=== PATIENT | female | born 1950 | race Caucasian/White ===

== ENCOUNTER 2017-07-14 08:45 | Day surgery (SDC) | payer MEDICARE, OTHER ==
[~2017-07-14] VITALS: Ht 167.6 cm; Wt 74.8 kg
[~2017-07-14 08:45] MED LIST: AMLO5 PO; CRANBERRY; DICL75ER PO; ERGO50000 PO; ESOM20 PO; LOVA40 PO; MULVITMINF PO; OMEPRAZOLE MAGN20 MG PO; VITAMIN B
== END 2017-07-14 22:56 | disposition home or self-care (01) ==
LOC: ORSCMMR 08:45 → ORD 10:00 → ORSCMMR 10:00
PROVIDERS: Internal Medicine Gastroenterology
PROC: 0DBP8ZX Excision of Rectum, Via Natural or Artificial Opening Endoscopic, Diagnostic (ICD-10-PCS; principal; 2017-07-14 10:00)
PROC: 0DBN8ZX Excision of Sigmoid Colon, Via Natural or Artificial Opening Endoscopic, Diagnostic (ICD-10-PCS; principal; 2017-07-14 10:00)
DX: K62.5 Hemorrhage of anus and rectum (principal); D12.8 Benign neoplasm of rectum; K63.5 Polyp of colon; K62.1 Rectal polyp; K51.40 Inflammatory polyps of colon without complications; K64.8 Other hemorrhoids; K57.30 Diverticulosis of large intestine without perforation or abscess without bleeding; Z80.0 Family history of malignant neoplasm of digestive organs; I10 Essential (primary) hypertension; E78.00 Pure hypercholesterolemia, unspecified; Z79.899 Other long term (current) drug therapy
CPT/HCPCS: 88305; J7120

== ENCOUNTER 2018-04-02 05:35 | Emergency (ER) | payer MEDICARE, OTHER ==
[~2018-04-02] VITALS: Ht 170.2 cm; Wt 73.0 kg
[2018-04-02 06:19] LABS: Source, Urine Clean Catch
[2018-04-02 06:24] LABS: Bilirubin, Urine Neg (Neg); Blood, Urine 1+ (Neg); Glucose Qualitative, Urine Neg (Neg); Ketones, Urine Neg (Neg); Leukocyte Esterase, Urine 1+ (Neg); Nitrite, Urine Neg (Neg); Protein, Urine 1+ (Neg); Urobilinogen, Urine NORM (Normal)
[2018-04-02 06:33] LABS: Appearance, Urine Hazy (Clear); Bacteria Not Seen /hpf; Color, Urine Yellow (P-Yellow); Red Blood Cells, Urine 0-2 /hpf (0-2); Squamous Epithelial Cells Few /hpf (Few); White Blood Cells, Urine 0-2 /hpf (0-5)
[2018-04-02 06:38] LABS: BASOPHILS ABSOLUTE AUTO 0.05 K/mm3 (0.00-0.23); BASOPHILS PERCENT AUTO 0 % (0-2); EOSINOPHILS ABSOLUTE AUTO 0.11 K/mm3 (0.00-0.68); EOSINOPHILS PERCENT AUTO 1 % (0-6); Hematocrit 42.9 % (33.0-51.0); Hemoglobin 14.2 g/dL (11.5-16.0); IMMATURE GRAN ABSOLUTE AUTO 0.06 K/mm3 (0.00-0.10); IMMATURE GRAN PERCENT AUTO 0 % (0-1); LYMPHOCYTES ABSOLUTE AUTO 2.65 K/mm3 (0.84-5.20); LYMPHOCYTES PERCENT AUTO 18 % (21-46); MONOCYTES ABSOLUTE AUTO 1.06 K/mm3 (0.16-1.47); MONOCYTES PERCENT AUTO 7 % (4-13); Mean Corpuscular HGB 30.6 pg (26.0-34.0); Mean Corpuscular HGB Conc 33.1 g/dL (31.5-36.5); Mean Corpuscular Volume 93 fL (80-100); Mean Platelet Volume 11.1 fL (9.1-12.4); NEUTROPHILS ABSOLUTE AUTO 10.92 K/mm3 (1.96-9.15); NEUTROPHILS PERCENT AUTO 74 % (41-73); Platelet Count 235 K/mm3 (150-400); RDW Coefficient Variation 13.2 % (11.7-14.2); RDW Standard Deviation 44.3 fL (35.1-46.3); Red Blood Cell Count 4.64 M/mm3 (3.80-5.20); White Blood Cell Count 14.85 K/mm3 (4.00-11.30)
[2018-04-02 06:55] LABS: Alanine Aminotransfer (ALT/SGP 32 U/L (12-78); Albumin/Globulin Ratio 1.2 (0.8-1.8); Alk Phos 86 U/L (50-136); Anion Gap 9 mmol/L (6-16); Aspartate Aminotrans (AST/SGOT 19 U/L (12-37); Bilirubin, Total 1.4 mg/dL (0.1-1.0); Blood Urea Nitrogen 14 mg/dL (8-24); Bun/Creatinine Ratio 21.2 (12.0-20.0); CO2, Blood 26 mmol/L (21-32); Calcium, Blood 9.7 mg/dL (8.5-10.1); Chloride, Blood 107 mmol/L (98-108); Creatinine, Blood 0.66 mg/dL (0.40-1.00); Globulin, Blood 3.4 g/dL (2.2-4.0); Glomerular Filtration Rate >60 (60-); Glucose, Blood 109 mg/dL (70-99); Potassium, Blood 3.7 mmol/L (3.5-5.5); Sodium, Blood 142 mmol/L (136-145); Total Protein, Blood 7.4 g/dL (6.4-8.2)
[2018-04-02] MEDS ORDERED: Flagyl250 MG PO (08:24)
[2018-04-02] MEDS ORDERED: Norco 5-325 Ta1 EACH PO (08:24)
[2018-04-02] MEDS ORDERED: Zofran4 MG PO (08:24)
[2018-04-02] MEDS ORDERED: Cipro500 MG PO (08:24)
[2018-05-12] MEDS ORDERED: Augmentin 875-1 EACH PO (16:38)
[2018-05-12] MEDS ORDERED: Norco 5-325 Ta1 EACH PO (16:43)
[2018-05-12] MEDS ORDERED: Diflucan150 MG PO (16:43)
== END 2018-04-02 08:46 | disposition home or self-care (01) ==
LOC: ER 05:35
PROVIDERS: Emergency Medicine
DX: K57.30 Diverticulosis of large intestine without perforation or abscess without bleeding (principal); Z88.2 Allergy status to sulfonamides; Z79.899 Other long term (current) drug therapy
CPT/HCPCS: 36415; 74176; 80053; 81001; 83690; 85025; 87086; 96361; 96374; 96375; 96376; 99284-25; J2405; J3010; J7030

== ENCOUNTER 2018-06-20 10:12 | Inpatient (IN) | payer MEDICARE, OTHER ==
[~2018-06-20] VITALS: Ht 162.6 cm; Wt 73.5 kg
[~2018-06-20 10:12] MED LIST changes: +Augmentin 875-1 EACH PO; +Cipro500 MG PO; +Diflucan150 MG PO; +Flagyl250 MG PO; +Norco 5-325 Ta1 EACH PO; +Zofran4 MG PO
[2018-06-20 10:42] LABS: BASOPHILS ABSOLUTE AUTO 0.07 K/mm3 (0.00-0.23); BASOPHILS PERCENT AUTO 1 % (0-2); EOSINOPHILS ABSOLUTE AUTO 0.19 K/mm3 (0.00-0.68); EOSINOPHILS PERCENT AUTO 1 % (0-6); Hematocrit 44.2 % (33.0-51.0); Hemoglobin 14.4 g/dL (11.5-16.0); IMMATURE GRAN ABSOLUTE AUTO 0.05 K/mm3 (0.00-0.10); IMMATURE GRAN PERCENT AUTO 0 % (0-1); LYMPHOCYTES PERCENT AUTO 21 % (21-46); MONOCYTES ABSOLUTE AUTO 0.95 K/mm3 (0.16-1.47); MONOCYTES PERCENT AUTO 6 % (4-13); Mean Corpuscular HGB 30.4 pg (26.0-34.0); Mean Corpuscular HGB Conc 32.6 g/dL (31.5-36.5); Mean Corpuscular Volume 93 fL (80-100); Mean Platelet Volume 10.8 fL (9.1-12.4); NEUTROPHILS ABSOLUTE AUTO 10.81 K/mm3 (1.96-9.15); NEUTROPHILS PERCENT AUTO 71 % (41-73); Platelet Count 269 K/mm3 (150-400); RDW Coefficient Variation 12.9 % (11.7-14.2); RDW Standard Deviation 44.2 fL (35.1-46.3); Red Blood Cell Count 4.73 M/mm3 (3.80-5.20); White Blood Cell Count 15.27 K/mm3 (4.00-11.30)
[2018-06-20 11:02] LABS: Alanine Aminotransfer (ALT/SGP 49 U/L (12-78); Albumin, Blood 4.8 g/dL (3.4-5.0); Albumin/Globulin Ratio 1.5 (0.8-1.8); Alk Phos 94 U/L (50-136); Anion Gap 6 mmol/L (6-16); Aspartate Aminotrans (AST/SGOT 31 U/L (12-37); Bilirubin, Total 1.3 mg/dL (0.1-1.0); Blood Urea Nitrogen 19 mg/dL (8-24); Bun/Creatinine Ratio 25.5 (12.0-20.0); CO2, Blood 27 mmol/L (21-32); Calcium, Blood 10.9 mg/dL (8.5-10.1); Chloride, Blood 107 mmol/L (98-108); Creatinine, Blood 0.75 mg/dL (0.40-1.00); Globulin, Blood 3.1 g/dL (2.2-4.0); Glomerular Filtration Rate >60 (60-); Glucose, Blood 92 mg/dL (70-99); Potassium, Blood 3.8 mmol/L (3.5-5.5); Sodium, Blood 140 mmol/L (136-145); Total Protein, Blood 7.9 g/dL (6.4-8.2)
[2018-06-20] MEDS ORDERED: Hydrocodone-Ap1 EA23 PO (12:16)
[2018-06-20] MEDS ORDERED: Zantac150 MG PO (13:10)
[2018-06-20] MEDS ORDERED: CRANBERRY500 M1 PO (13:12)
[2018-06-20] MEDS ORDERED: CENTRUM SILVER1 EAC2 PO (13:12)
[2018-06-20] MEDS ORDERED: CYAN500 PO (13:13)
[2018-06-20] MEDS ORDERED: Oyster Shell C500 MG PO (13:14)
[2018-06-20] MEDS ORDERED: Elemental Calc600 MG PO (13:17)
[2018-06-20] MEDS ORDERED: PROBIOTIC FORM1 EAC1 PO (15:02)
--- NOTE | 2018-06-20 15:44 | NUR ---
PT ARRIVED TO UNIT FROM ED A&OX4. PLEASANT AND COOPERATIVE. REPORTS 9/10 LLQ PAIN AT THIS TIME. DENIES N/V. MEDICATED PER ORDERS W/1 TAB NORCO FOR PAIN. AMBULATED INDEPENDENTLY TO RESTROOM AND VOIDED 150 ML CLEAR PALE YELLOW URINE. NOW RESTING IN BED, WATCHING TV. CALL LIGHT IN REACH. ABX AND IV FLUIDS INFUSING PER ORDERS. LOVENOX ADMINSTERED PER ORDERS.
--- NOTE | 2018-06-20 17:21 | NUR ---
SUMMARY NO ACUTE CHANGES SINCE ARRIVING TO FLOOR. HAS BEEN UP TO RESTROM TWICE AND VOIDED SINCE ARRIVING. MEDICATED PER ORDERS FOR PAIN WHICH BROUGHT LEVEL FROM 9 TO 5. DENIES NAUSEA. IV ABX INFUSED W/O DIFFICULTY. IV FLUIDS INFUSING AT THIS TIME. CALL LIGHT IN REACH.
--- NOTE | 2018-06-20 18:03 | NUR ---
02 SATS 02 SATS DROPPED TO MID- HIGH- EIGHTIES PT RESTED W/EYES CLOSED. PLACED ON 2L NC. 02 SATS NOW 96% RESTS.
[2018-06-21 05:03] LABS: BASOPHILS ABSOLUTE AUTO 0.06 K/mm3 (0.00-0.23); BASOPHILS PERCENT AUTO 0 % (0-2); EOSINOPHILS PERCENT AUTO 1 % (0-6); Hematocrit 38.7 % (33.0-51.0); Hemoglobin 12.2 g/dL (11.5-16.0); IMMATURE GRAN ABSOLUTE AUTO 0.07 K/mm3 (0.00-0.10); IMMATURE GRAN PERCENT AUTO 0 % (0-1); LYMPHOCYTES ABSOLUTE AUTO 2.32 K/mm3 (0.84-5.20); LYMPHOCYTES PERCENT AUTO 15 % (21-46); MONOCYTES ABSOLUTE AUTO 1.19 K/mm3 (0.16-1.47); MONOCYTES PERCENT AUTO 8 % (4-13); Mean Corpuscular HGB 29.8 pg (26.0-34.0); Mean Corpuscular HGB Conc 31.5 g/dL (31.5-36.5); Mean Corpuscular Volume 94 fL (80-100); Mean Platelet Volume 10.9 fL (9.1-12.4); NEUTROPHILS ABSOLUTE AUTO 12.19 K/mm3 (1.96-9.15); NEUTROPHILS PERCENT AUTO 77 % (41-73); Platelet Count 215 K/mm3 (150-400); RDW Coefficient Variation 13.5 % (11.7-14.2); RDW Standard Deviation 46.5 fL (35.1-46.3); White Blood Cell Count 15.93 K/mm3 (4.00-11.30)
[2018-06-21 06:03] LABS: Anion Gap 5 mmol/L (6-16); Blood Urea Nitrogen 11 mg/dL (8-24); CO2, Blood 27 mmol/L (21-32); Calcium, Blood 8.9 mg/dL (8.5-10.1); Chloride, Blood 108 mmol/L (98-108); Creatinine, Blood 0.79 mg/dL (0.40-1.00); Glomerular Filtration Rate >60 (60-); Glucose, Blood 106 mg/dL (70-99); Potassium, Blood 3.8 mmol/L (3.5-5.5); Sodium, Blood 140 mmol/L (136-145)
--- NOTE | 2018-06-21 06:44 | NUR ---
LYING IN RIGHT SEMI FOWLERS WITH EYES OPEN. MEDICATED X2 FOR BREAKTHROUGH PAIN. REPOSITIONS SELF FOR COMFORT. DENIES FURTHER NEEDS AT THIS TIME. SAFETY MEASURES IN PLACE. WILL GIVE HAND OFF TO ONCOMING SHIFT USING SBAR,
--- NOTE | 2018-06-21 14:29 | NUR ---
biox patient sleeping after pain meds. biox 88%, oxygen placed at 1 liter and biox 93-95%
--- NOTE | 2018-06-21 17:57 | NUR ---
SUMMARY BIOX 96-98%, OXYGEN REMOVED AT THIS TIME, PATIENT REMAINS ON CONT BIOX. PATIENT TOLERATING CLEAR LIQUIDS AND DENIES NAUSEA OR ABD PAIN
--- NOTE | 2018-06-22 06:10 | NUR ---
SHIFT SUMMARY PT RESTED WELL THIS AM. AAOX4. PAIN CONTROLLED WITH 10MG ROXICODONE Q4H. NO NAUSEA/EMESIS. IVF + ABX PER ORDERS. NO ACUTE CHANGES THIS SHIFT. CALL LIGHT IN RAECH + PT USES FOR ASSISTANCE.
[2018-06-22 06:11] LABS: BASOPHILS ABSOLUTE AUTO 0.04 K/mm3 (0.00-0.23); BASOPHILS PERCENT AUTO 0 % (0-2); EOSINOPHILS ABSOLUTE AUTO 0.13 K/mm3 (0.00-0.68); EOSINOPHILS PERCENT AUTO 1 % (0-6); Hematocrit 38.8 % (33.0-51.0); Hemoglobin 12.2 g/dL (11.5-16.0); IMMATURE GRAN ABSOLUTE AUTO 0.06 K/mm3 (0.00-0.10); IMMATURE GRAN PERCENT AUTO 0 % (0-1); LYMPHOCYTES ABSOLUTE AUTO 2.18 K/mm3 (0.84-5.20); LYMPHOCYTES PERCENT AUTO 15 % (21-46); MONOCYTES ABSOLUTE AUTO 1.06 K/mm3 (0.16-1.47); MONOCYTES PERCENT AUTO 7 % (4-13); Mean Corpuscular HGB 29.7 pg (26.0-34.0); Mean Corpuscular HGB Conc 31.4 g/dL (31.5-36.5); Mean Corpuscular Volume 94 fL (80-100); NEUTROPHILS ABSOLUTE AUTO 10.94 K/mm3 (1.96-9.15); NEUTROPHILS PERCENT AUTO 76 % (41-73); Platelet Count 192 K/mm3 (150-400); RDW Coefficient Variation 13.1 % (11.7-14.2); RDW Standard Deviation 45.2 fL (35.1-46.3); Red Blood Cell Count 4.11 M/mm3 (3.80-5.20); White Blood Cell Count 14.41 K/mm3 (4.00-11.30)
[2018-06-22 06:41] LABS: Alanine Aminotransfer (ALT/SGP 26 U/L (12-78); Albumin, Blood 3.3 g/dL (3.4-5.0); Albumin/Globulin Ratio 1.1 (0.8-1.8); Alk Phos 79 U/L (50-136); Anion Gap 8 mmol/L (6-16); Aspartate Aminotrans (AST/SGOT 16 U/L (12-37); Bilirubin, Total 1.7 mg/dL (0.1-1.0); Blood Urea Nitrogen 5 mg/dL (8-24); Bun/Creatinine Ratio 8.8 (12.0-20.0); CO2, Blood 23 mmol/L (21-32); Calcium, Blood 8.6 mg/dL (8.5-10.1); Chloride, Blood 111 mmol/L (98-108); Creatinine, Blood 0.57 mg/dL (0.40-1.00); Globulin, Blood 2.9 g/dL (2.2-4.0); Glomerular Filtration Rate >60 (60-); Glucose, Blood 83 mg/dL (70-99); Potassium, Blood 3.8 mmol/L (3.5-5.5); Sodium, Blood 142 mmol/L (136-145); Total Protein, Blood 6.2 g/dL (6.4-8.2)
--- NOTE | 2018-06-22 08:54 | NUR ---
ISTRATE HERE TO SEE PT.
[2018-06-22 13:38] LABS: Hematocrit 38.8 % (33.0-51.0); Hemoglobin 12.5 g/dL (11.5-16.0); Mean Corpuscular HGB 30.8 pg (26.0-34.0); Mean Corpuscular HGB Conc 32.2 g/dL (31.5-36.5); Mean Corpuscular Volume 96 fL (80-100); Mean Platelet Volume 11.5 fL (9.1-12.4); Platelet Count 209 K/mm3 (150-400); RDW Coefficient Variation 13.2 % (11.7-14.2); RDW Standard Deviation 46.4 fL (35.1-46.3); Red Blood Cell Count 4.06 M/mm3 (3.80-5.20); White Blood Cell Count 12.13 K/mm3 (4.00-11.30)
--- NOTE | 2018-06-22 13:46 | NUR ---
DR HARRISON HERE, REPORTS WILL ADVANCE TO FULL LIQUID. PT REPORTS HAVING BM.
--- NOTE | 2018-06-22 16:28 | NUR ---
SHIFT SUMMARY PT TOLERATING C.L. BEING ADVANCED TO FULL LIQUID. PT VOIDING. PT BEEN ASSISTED WITH ADL'S PRN AND MED FOR PAIN PRN. PT WBC APPEARS TO BE TRENDING DOWN. DR TOLEDO AND DR HARRISON BEEN TO SEE PT TODAY. PT REPORTED HAVING BM TODAY. PT UP IND.
[2018-06-23 05:04] LABS: BASOPHILS ABSOLUTE AUTO 0.05 K/mm3 (0.00-0.23); BASOPHILS PERCENT AUTO 1 % (0-2); EOSINOPHILS ABSOLUTE AUTO 0.26 K/mm3 (0.00-0.68); EOSINOPHILS PERCENT AUTO 3 % (0-6); Hematocrit 38.7 % (33.0-51.0); Hemoglobin 12.6 g/dL (11.5-16.0); IMMATURE GRAN ABSOLUTE AUTO 0.04 K/mm3 (0.00-0.10); IMMATURE GRAN PERCENT AUTO 0 % (0-1); LYMPHOCYTES PERCENT AUTO 19 % (21-46); MONOCYTES ABSOLUTE AUTO 0.83 K/mm3 (0.16-1.47); MONOCYTES PERCENT AUTO 8 % (4-13); Mean Corpuscular HGB 30.7 pg (26.0-34.0); Mean Corpuscular HGB Conc 32.6 g/dL (31.5-36.5); Mean Corpuscular Volume 94 fL (80-100); Mean Platelet Volume 10.9 fL (9.1-12.4); NEUTROPHILS ABSOLUTE AUTO 6.88 K/mm3 (1.96-9.15); NEUTROPHILS PERCENT AUTO 69 % (41-73); Platelet Count 213 K/mm3 (150-400); RDW Coefficient Variation 13.1 % (11.7-14.2); RDW Standard Deviation 45.2 fL (35.1-46.3); Red Blood Cell Count 4.11 M/mm3 (3.80-5.20); White Blood Cell Count 9.96 K/mm3 (4.00-11.30)
[2018-06-23 05:19] LABS: Alanine Aminotransfer (ALT/SGP 26 U/L (12-78); Albumin, Blood 3.3 g/dL (3.4-5.0); Alk Phos 88 U/L (50-136); Anion Gap 5 mmol/L (6-16); Aspartate Aminotrans (AST/SGOT 19 U/L (12-37); Bilirubin, Total 1.2 mg/dL (0.1-1.0); Blood Urea Nitrogen 3 mg/dL (8-24); Bun/Creatinine Ratio 5.4 (12.0-20.0); CO2, Blood 28 mmol/L (21-32); Calcium, Blood 9.2 mg/dL (8.5-10.1); Chloride, Blood 111 mmol/L (98-108); Creatinine, Blood 0.56 mg/dL (0.40-1.00); Globulin, Blood 3.3 g/dL (2.2-4.0); Glomerular Filtration Rate >60 (60-); Glucose, Blood 97 mg/dL (70-99); Potassium, Blood 3.4 mmol/L (3.5-5.5); Sodium, Blood 144 mmol/L (136-145); Total Protein, Blood 6.6 g/dL (6.4-8.2)
--- NOTE | 2018-06-23 06:38 | NUR ---
LYING IN SEMI FOWLERS WITH EYES CLOSED. MEDICATED X1 FOR BREAKTHROUGH PAIN. REPOSITIONS SELF FOR COMFORT. DENIES FURTHER NEEDS AT THIS TIME. SAFETY MEASURES IN PLACE. WILL GIVE HAND OFF TO ONCOMING SHIFT USING SBAR,
[2018-06-23] MEDS ORDERED: HYDR1TAB94 PO (11:14)
[2018-06-23] MEDS ORDERED: BISA10S PR (11:15)
[2018-06-23] MEDS ORDERED: ACET325 PO (11:15)
[2018-06-23] MEDS ORDERED: ONDA4ODT PO (11:16)
[2018-06-23] MEDS ORDERED: Augmentin 875-1 EACH PO (11:18)
[2018-06-23] MEDS ORDERED: SACC250C PO (11:19)
[2018-06-23] MEDS ORDERED: FLUC100 PO (11:20)
== END 2018-06-23 11:30 | disposition home or self-care (01) | DRG 392 ==
LOC: ER 10:12 → SURS 13:14
PROVIDERS: Emergency Medicine; ADMIT Family Medicine
DX: K57.20 Diverticulitis of large intestine with perforation and abscess without bleeding (principal); I10 Essential (primary) hypertension; E78.5 Hyperlipidemia, unspecified; M19.90 Unspecified osteoarthritis, unspecified site; Z87.891 Personal history of nicotine dependence; G89.29 Other chronic pain
CPT/HCPCS: 36415; 74177; 80048; 80053; 83605; 83690; 85025; 85027; 87040; 94762; 96361-59; 96365-59; 96375-59; 96376-59; 99285-25; A9270-GY; J0694; J1650; J2270; J2405; J2543; J3010; J7030; Q9967

== ENCOUNTER 2018-10-28 17:26 | Emergency (ER) | payer MEDICARE, OTHER ==
[~2018-10-28] VITALS: Ht 167.6 cm; Wt 74.8 kg
[~2018-10-28 17:26] MED LIST changes: +ACET325 PO; +BISA10S PR; +CENTRUM SILVER1 EAC2 PO; +CRANBERRY500 M1 PO; +CYAN500 PO; +Elemental Calc600 MG PO; +FLUC100 PO; +HYDR1TAB94 PO; +Hydrocodone-Ap1 EA23 PO; +ONDA4ODT PO; +Oyster Shell C500 MG PO; +PROBIOTIC FORM1 EAC1 PO; +SACC250C PO; +Zantac150 MG PO
[2018-10-28 17:59] LABS: Source, Urine Clean Catch
[2018-10-28 18:02] LABS: BASOPHILS ABSOLUTE AUTO 0.07 K/mm3 (0.00-0.23); BASOPHILS PERCENT AUTO 1 % (0-2); EOSINOPHILS ABSOLUTE AUTO 0.27 K/mm3 (0.00-0.68); EOSINOPHILS PERCENT AUTO 2 % (0-6); Hematocrit 43.1 % (33.0-51.0); Hemoglobin 14.2 g/dL (11.5-16.0); IMMATURE GRAN ABSOLUTE AUTO 0.03 K/mm3 (0.00-0.10); IMMATURE GRAN PERCENT AUTO 0 % (0-1); LYMPHOCYTES ABSOLUTE AUTO 3.59 K/mm3 (0.84-5.20); LYMPHOCYTES PERCENT AUTO 29 % (21-46); MONOCYTES ABSOLUTE AUTO 1.03 K/mm3 (0.16-1.47); MONOCYTES PERCENT AUTO 8 % (4-13); Mean Corpuscular HGB 30.7 pg (26.0-34.0); Mean Corpuscular HGB Conc 32.9 g/dL (31.5-36.5); Mean Corpuscular Volume 93 fL (80-100); Mean Platelet Volume 11.2 fL (9.1-12.4); NEUTROPHILS ABSOLUTE AUTO 7.21 K/mm3 (1.96-9.15); NEUTROPHILS PERCENT AUTO 59 % (41-73); Platelet Count 264 K/mm3 (150-400); RDW Coefficient Variation 12.8 % (11.7-14.2); RDW Standard Deviation 43.8 fL (35.1-46.3); Red Blood Cell Count 4.62 M/mm3 (3.80-5.20)
[2018-10-28 18:05] LABS: Bilirubin, Urine Neg (Neg); Blood, Urine Neg (Neg); Glucose Qualitative, Urine Neg (Neg); Ketones, Urine Neg (Neg); Leukocyte Esterase, Urine 3+ (Neg); Nitrite, Urine Neg (Neg); Protein, Urine Neg (Neg); Urobilinogen, Urine NORM (Normal)
[2018-10-28 18:11] LABS: Appearance, Urine Clear (Clear); Color, Urine Yellow (P-Yellow)
[2018-10-28 18:12] LABS: Bacteria Rare /hpf; Red Blood Cells, Urine 0-2 /hpf (0-2); Squamous Epithelial Cells Rare /hpf (Few)
[2018-10-28 18:20] LABS: Alanine Aminotransfer (ALT/SGP 37 U/L (12-78); Albumin, Blood 4.1 g/dL (3.4-5.0); Albumin/Globulin Ratio 1.2 (0.8-1.8); Alk Phos 97 U/L (50-136); Anion Gap 5 mmol/L (6-16); Aspartate Aminotrans (AST/SGOT 20 U/L (12-37); Bilirubin, Total 0.6 mg/dL (0.1-1.0); Blood Urea Nitrogen 15 mg/dL (8-24); Bun/Creatinine Ratio 17.8 (12.0-20.0); CO2, Blood 28 mmol/L (21-32); Chloride, Blood 107 mmol/L (98-108); Creatinine, Blood 0.84 mg/dL (0.40-1.00); Globulin, Blood 3.5 g/dL (2.2-4.0); Glomerular Filtration Rate >60 (60-); Glucose, Blood 133 mg/dL (70-99); Potassium, Blood 3.7 mmol/L (3.5-5.5); Sodium, Blood 140 mmol/L (136-145); Total Protein, Blood 7.6 g/dL (6.4-8.2)
[2018-10-28] MEDS ORDERED: Augmentin 875-1 EACH PO (19:50)
[2018-10-28] MEDS ORDERED: Percocet 5-3251 EACH PO (19:50)
== END 2018-10-28 20:22 | disposition home or self-care (01) ==
LOC: ER 17:26
PROVIDERS: Physician Assistant
DX: K57.32 Diverticulitis of large intestine without perforation or abscess without bleeding (principal); Z88.2 Allergy status to sulfonamides; Z88.0 Allergy status to penicillin; Z79.899 Other long term (current) drug therapy
CPT/HCPCS: 36415; 74177; 80053; 81001; 83690; 85025; 87086; 96374; 96375; 99284-25; A9270; J2405; J3010; Q9967

== ENCOUNTER 2019-02-07 09:30 | Inpatient (IN) | payer MEDICARE, OTHER ==
[~2019-02-07 09:30] MED LIST changes: +Percocet 5-3251 EACH PO
[2019-02-26] MEDS ORDERED: NEOM500 PO (10:34)
[2019-02-26] MEDS ORDERED: METR500 PO (10:34)
--- NOTE | 2019-02-28 08:56 | NUR ---
02/28/[address] IRRIGATED RECTUM WITH DILUTED IODINE SOLUTION THEN GRACE AREA PREPPED WITH POG PER ROSALIND RN, ABDOMEN PREPPED WITH DURAPREP PER Venkatesh FLANNERY
--- NOTE | 2019-02-28 18:12 | NUR ---
SHIFT SUMMARY PT WAS INITIALLY UPON ARRIVAL TO UNIT WAS TEARFUL WITH TEARS STREAMING DOWN FACE. STEAM SHOVEL ENGINEER SET UP, PO MEDS GIVEN, AND ENCOURAGEMENT GIVEN. NO RELIEF FROM THESE SO DR VERDUZCO CALLED AND NEW ORDERS PLACED. PT HAS MUCH BETTER PAIN CONTROL. APPEARS COMFORTABLE IN BED.
[2019-03-01 05:06] LABS: BASOPHILS ABSOLUTE AUTO 0.03 K/mm3 (0.00-0.23); BASOPHILS PERCENT AUTO 0 % (0-2); EOSINOPHILS PERCENT AUTO 0 % (0-6); Hematocrit 40.3 % (33.0-51.0); Hemoglobin 13.2 g/dL (11.5-16.0); IMMATURE GRAN ABSOLUTE AUTO 0.06 K/mm3 (0.00-0.10); IMMATURE GRAN PERCENT AUTO 0 % (0-1); LYMPHOCYTES ABSOLUTE AUTO 2.38 K/mm3 (0.84-5.20); LYMPHOCYTES PERCENT AUTO 13 % (21-46); MONOCYTES ABSOLUTE AUTO 2.02 K/mm3 (0.16-1.47); MONOCYTES PERCENT AUTO 11 % (4-13); Mean Corpuscular HGB 30.6 pg (26.0-34.0); Mean Corpuscular HGB Conc 32.8 g/dL (31.5-36.5); Mean Corpuscular Volume 94 fL (80-100); Mean Platelet Volume 10.9 fL (9.1-12.4); NEUTROPHILS ABSOLUTE AUTO 14.01 K/mm3 (1.96-9.15); NEUTROPHILS PERCENT AUTO 76 % (41-73); Platelet Count 276 K/mm3 (150-400); RDW Coefficient Variation 12.9 % (11.7-14.2); RDW Standard Deviation 44.3 fL (35.1-46.3); Red Blood Cell Count 4.31 M/mm3 (3.80-5.20)
[2019-03-01 06:18] LABS: Anion Gap 6 mmol/L (6-16); Blood Urea Nitrogen 7 mg/dL (8-24); Bun/Creatinine Ratio 12.6 (12.0-20.0); CO2, Blood 26 mmol/L (21-32); Calcium, Blood 9.2 mg/dL (8.5-10.1); Chloride, Blood 108 mmol/L (98-108); Creatinine, Blood 0.56 mg/dL (0.40-1.00); Glomerular Filtration Rate >60 (60-); Glucose, Blood 117 mg/dL (70-99); Potassium, Blood 3.9 mmol/L (3.5-5.5); Sodium, Blood 140 mmol/L (136-145)
--- NOTE | 2019-03-01 07:45 | NUR ---
SHIFT SUMMARY PT POD#1 SIGMOID COLECTOMY. AAOX4. DISCOMFORT CONTROLLED WITH FENTANYL DINING ROOM ATTENDANT + SCHEDULED TYLENOL/GABAPENTIN. NO NAUSEA/EMESIS. ABD INCISIONS WITH GAUZE, UMBILICAL INCISION WITH MODERATE AMOUNT RED DRAINAGE, NO INCREASE THIS AM. MAGALY SECURE WITH 20cc RED DRAINAGE. PT REPOSITIONS SELF WELL IN BED, ENCOURAGE TO MOVE OOB WITH ASSISTANCE TODAY. IVF + ABX PER ORDERS. DELONG WITH LARGE AMOUNTS OF DARK YELLOW URINE. PT RESTING WELL AT THIS TIME, NADN, WITH CALL LIGHT IN REACH. REPORT TO DAY SHIFT RN.
--- NOTE | 2019-03-01 17:02 | NUR ---
SHIFT SUMMARY NO ACUTE CHANGES THIS SHIFT. PT USING FENTANYL SUPPLY CHAIN ENGINEER FOR PAIN MANAGEMENT + SCHEDULED TYLENOL AND GABAPENTIN. MUMTAZ CLEAR LIQ DIET. LAP SITES TO ARE CDI. MAGALY WITH SCANT SANGUINOUS DRAINAGE. PT UP TO CHAIR AND AMBULATING HALLWAYS WITH MINIMAL SBA. DELONG DC'D AND PT VOIDING WELL. USES CALL LIGHT APPROPRIATELY.
--- NOTE | 2019-03-02 06:19 | NUR ---
SHIFT SUMMARY PT POD#2 ROBOTIC SIGMOID COLECTOMY. AAOX4. DISCOMFORT CONTROLLED WITH FENTANYL SHELL SIEVE OPERATOR. NO NAUSEA/EMESIS. ABD INCISION WITH GAUZE, UMBILICAL + MAGALY GAUZE CHANGED THIS SHIFT. MAGALY SECURE WITH SCANT AMOUNT SS DRAINAGE. IVF TKO FOR FENTANYL SHELL SIEVE OPERATOR. PT UP TO RESTROOM FREQUENTLY T/O NIGHT. GOOD PO INTAKE + OUTPUT. ENCOURAGE DEEP BREATHING + INCENTIVE SPIROMETRY TODAY. BOWEL TONES HYPO T/O SHIFT. PT UP TO CHAIR THIS AM, NADN, WITH CALL LIGHT IN REACH.
--- NOTE | 2019-03-02 07:10 | NUR ---
recvd report from previous shift RN dr lizz Huff rounding on pt, pt up in chair, a/o x 4, pleasant/cooperative, states she is feeling slightly nausea, denies need for antiemetics at this time, will reassess. pt states pain controlled at this time with GLAUCOMA SPECIALIST analgesia
--- NOTE | 2019-03-02 17:40 | NUR ---
shift summary: pt remained a/o x 4, vss no acute changes, tolerated clear liquid diet with mild nausea no vomiting before lunch. following lunch and into evening pt reports no nauseousness. pt ambulated x 5 this shift. pt up in chair in room remainder of shift. pt showered herself, tolerated PO intake. pt states she has "soreness, no pain" in the abdomen." Analgesia switched from ORNAMENTAL IRON WORKER to PO medication per may, tolerated well, only soreness reported, denies pain. MAGALY drain dressing changed following shower. MAGALY with 25 ml bright pink serosanguinous fluid.
--- NOTE | 2019-03-03 03:56 | NUR ---
SHIFT SUMMARY NO ACUTE CHANGES T/O SHIFT. PT ABLE TO SLEEP T/O THE NIGHT; WHICH WAS HER GOAL. ABD DRESSINGS C/D/I WITH NO NEW DRAINAGE NOTED. PT DENIED PAIN OR DISCOMFORT. REPORTED PASSING FLATUS AND VOIDING W/OUT DIFFICULTY. IND IN ROOM. USES CALL LIGHT APPROPRIATELY AND IS ABLE TO VERBALIZE NEEDS. PT IS CURRENTLY ASLEEP IN ROOM AND HAS CALL LIGHT WITHIN REACH.
[2019-03-03 05:18] LABS: BASOPHILS ABSOLUTE AUTO 0.05 K/mm3 (0.00-0.23); BASOPHILS PERCENT AUTO 1 % (0-2); EOSINOPHILS ABSOLUTE AUTO 0.37 K/mm3 (0.00-0.68); EOSINOPHILS PERCENT AUTO 4 % (0-6); Hematocrit 37.5 % (33.0-51.0); IMMATURE GRAN ABSOLUTE AUTO 0.02 K/mm3 (0.00-0.10); IMMATURE GRAN PERCENT AUTO 0 % (0-1); LYMPHOCYTES ABSOLUTE AUTO 2.49 K/mm3 (0.84-5.20); LYMPHOCYTES PERCENT AUTO 28 % (21-46); MONOCYTES ABSOLUTE AUTO 0.85 K/mm3 (0.16-1.47); MONOCYTES PERCENT AUTO 10 % (4-13); Mean Corpuscular Volume 94 fL (80-100); Mean Platelet Volume 10.9 fL (9.1-12.4); NEUTROPHILS ABSOLUTE AUTO 5.12 K/mm3 (1.96-9.15); NEUTROPHILS PERCENT AUTO 57 % (41-73); Platelet Count 218 K/mm3 (150-400); RDW Coefficient Variation 12.8 % (11.7-14.2); RDW Standard Deviation 44.4 fL (35.1-46.3)
[2019-03-03 05:33] LABS: Anion Gap 6 mmol/L (6-16); Blood Urea Nitrogen 6 mg/dL (8-24); Bun/Creatinine Ratio 11.9 (12.0-20.0); CO2, Blood 31 mmol/L (21-32); Calcium, Blood 9.5 mg/dL (8.5-10.1); Chloride, Blood 104 mmol/L (98-108); Glomerular Filtration Rate >60 (60-); Glucose, Blood 102 mg/dL (70-99); Potassium, Blood 3.4 mmol/L (3.5-5.5); Sodium, Blood 141 mmol/L (136-145)
--- NOTE | 2019-03-03 18:03 | NUR ---
SUMMARY MINIMAL PAIN, REPORTS PAIN IS WELL CONTROLLED WITH TYLENOL AND 1 OXYCODONE, DENIES ANY NAUSEA OR ABD DISCOMFORT, TOLERATING REGULAR FOOD, AMBULATED DOWN THE HALLS AT LEAST 6 TIMES TODAY, OOB TO CHAIR FOR MEALS, REPORTS PASSING FLATUS TODAY BUT NO BM, VSS, MAGALY DRAINING SEROUSANGUINOUS DRAINAGE, DSG C/D/I, NO ACUTE CHANGES THIS SHIFT.
--- NOTE | 2019-03-04 07:35 | NUR ---
SUMMARY PT HAD 2 BMS THIS SHIFT. HOPING FOR DISCHARGE HOME
== END 2019-03-04 10:07 | disposition home or self-care (01) | DRG 349 ==
LOC: SURS 02-28 05:43 → PRE IP 02-28 07:30 → SURS 02-28 14:01
PROVIDERS: ADMIT Surgery
PROC: 8E0Y4CZ Robotic Assisted Procedure of Lower Extremity, Percutaneous Endoscopic Approach (ICD-10-PCS; 2019-02-28)
PROC: 0DBNFZZ Excision of Sigmoid Colon, Via Natural or Artificial Opening With Percutaneous Endoscopic Assistance (ICD-10-PCS; principal; 2019-02-28 07:30)
DX: K57.32 Diverticulitis of large intestine without perforation or abscess without bleeding (principal); K59.09 Other constipation; I10 Essential (primary) hypertension; E78.00 Pure hypercholesterolemia, unspecified; E78.5 Hyperlipidemia, unspecified
CPT/HCPCS: 36415; 80048; 85025; 86850; 86900; 86901; 88307; 94760; 94762; 97110; 97116; 97162; 97530; A9270; J0690; J1100; J2250; J2370; J2405; J2704; J3010; J3360; J7120

== ENCOUNTER 2019-04-06 17:28 | Emergency (ER) | payer MEDICARE, OTHER ==
[~2019-04-06] VITALS: Ht 167.6 cm; Wt 71.7 kg
[~2019-04-06 17:28] MED LIST changes: +METR500 PO; +NEOM500 PO
[2019-04-06 17:52] LABS: BASOPHILS ABSOLUTE AUTO 0.07 K/mm3 (0.00-0.23); BASOPHILS PERCENT AUTO 1 % (0-2); EOSINOPHILS ABSOLUTE AUTO 0.27 K/mm3 (0.00-0.68); EOSINOPHILS PERCENT AUTO 3 % (0-6); Hematocrit 41.4 % (33.0-51.0); Hemoglobin 13.8 g/dL (11.5-16.0); IMMATURE GRAN ABSOLUTE AUTO 0.02 K/mm3 (0.00-0.10); IMMATURE GRAN PERCENT AUTO 0 % (0-1); LYMPHOCYTES ABSOLUTE AUTO 3.75 K/mm3 (0.84-5.20); LYMPHOCYTES PERCENT AUTO 39 % (21-46); MONOCYTES ABSOLUTE AUTO 0.75 K/mm3 (0.16-1.47); MONOCYTES PERCENT AUTO 8 % (4-13); Mean Corpuscular HGB 30.9 pg (26.0-34.0); Mean Corpuscular HGB Conc 33.3 g/dL (31.5-36.5); Mean Corpuscular Volume 93 fL (80-100); Mean Platelet Volume 11.1 fL (9.1-12.4); NEUTROPHILS ABSOLUTE AUTO 4.65 K/mm3 (1.96-9.15); NEUTROPHILS PERCENT AUTO 49 % (41-73); Platelet Count 247 K/mm3 (150-400); RDW Coefficient Variation 12.9 % (11.7-14.2); RDW Standard Deviation 43.6 fL (35.1-46.3); Red Blood Cell Count 4.47 M/mm3 (3.80-5.20); White Blood Cell Count 9.51 K/mm3 (4.00-11.30)
[2019-04-06 18:14] LABS: Alanine Aminotransfer (ALT/SGP 31 U/L (12-78); Albumin, Blood 4.1 g/dL (3.4-5.0); Albumin/Globulin Ratio 1.4 (0.8-1.8); Alk Phos 76 U/L (50-136); Anion Gap 5 mmol/L (6-16); Aspartate Aminotrans (AST/SGOT 19 U/L (12-37); Bilirubin, Total 0.4 mg/dL (0.1-1.0); Blood Urea Nitrogen 19 mg/dL (8-24); Bun/Creatinine Ratio 19.4 (12.0-20.0); CO2, Blood 27 mmol/L (21-32); Calcium, Blood 9.7 mg/dL (8.5-10.1); Chloride, Blood 108 mmol/L (98-108); Creatinine, Blood 0.98 mg/dL (0.40-1.00); Glomerular Filtration Rate >60 (60-); Glucose, Blood 94 mg/dL (70-99); Potassium, Blood 4.1 mmol/L (3.5-5.5); Sodium, Blood 140 mmol/L (136-145); Total Protein, Blood 7.1 g/dL (6.4-8.2)
[2019-04-06 19:13] LABS: Source, Urine Clean Catch
[2019-04-06 19:24] LABS: Bilirubin, Urine Neg (Neg); Blood, Urine Neg (Neg); Glucose Qualitative, Urine Neg (Neg); Ketones, Urine Neg (Neg); Leukocyte Esterase, Urine 1+ (Neg); Nitrite, Urine Neg (Neg); Protein, Urine Neg (Neg); Specific Gravity, Urine 1.005 (1.003-1.022); Urobilinogen, Urine NORM (Normal); pH, Urine 6.5 (5.0-8.0)
[2019-04-06 19:31] LABS: Appearance, Urine Clear (Clear); Color, Urine Pale Yellow (P-Yellow)
[2019-04-06 19:32] LABS: Bacteria Rare /hpf; Red Blood Cells, Urine 0-2 /hpf (0-2); Squamous Epithelial Cells Few /hpf (Few); White Blood Cells, Urine 0-2 /hpf (0-5)
[2019-04-06] MEDS ORDERED: Ultram50 MG PO (20:01)
[2019-04-06] MEDS ORDERED: ONDA4ODT MM (20:01)
== END 2019-04-06 20:18 | disposition home or self-care (01) ==
LOC: ER 17:28
PROVIDERS: Physician Assistant
DX: K52.9 Noninfective gastroenteritis and colitis, unspecified (principal); Z88.2 Allergy status to sulfonamides; Z88.1 Allergy status to other antibiotic agents; Z88.8 Allergy status to other drugs, medicaments and biological substances; Z79.899 Other long term (current) drug therapy; I10 Essential (primary) hypertension; E78.5 Hyperlipidemia, unspecified; Z87.891 Personal history of nicotine dependence
CPT/HCPCS: 36415; 74177; 80053; 81001; 83690; 85025; 87086; 96374-59; 99284-25; J1885; Q9967

== ENCOUNTER 2022-12-21 05:45 | Emergency (ER) | payer MEDICARE, OTHER ==
[~2022-12-21] VITALS: Ht 167.6 cm; Wt 72.6 kg
[~2022-12-21 05:45] MED LIST changes: +ONDA4ODT MM; +Ultram50 MG PO
[2022-12-21 06:09] LABS: BASOPHILS ABSOLUTE AUTO 0.06 K/mm3 (0.00-0.23); BASOPHILS PERCENT AUTO 1 % (0-2); EOSINOPHILS ABSOLUTE AUTO 0.24 K/mm3 (0.00-0.68); EOSINOPHILS PERCENT AUTO 3 % (0-6); Hemoglobin 14.6 g/dL (11.5-16.0); IMMATURE GRAN ABSOLUTE AUTO 0.04 K/mm3 (0.00-0.10); IMMATURE GRAN PERCENT AUTO 1 % (0-1); LYMPHOCYTES ABSOLUTE AUTO 3.43 K/mm3 (0.84-5.20); LYMPHOCYTES PERCENT AUTO 40 % (21-46); MONOCYTES ABSOLUTE AUTO 0.51 K/mm3 (0.16-1.47); MONOCYTES PERCENT AUTO 6 % (4-13); Mean Corpuscular HGB 30.4 pg (26.0-34.0); Mean Corpuscular HGB Conc 33.2 g/dL (31.5-36.5); Mean Corpuscular Volume 92 fL (80-100); Mean Platelet Volume 10.9 fL (9.1-12.4); NEUTROPHILS ABSOLUTE AUTO 4.29 K/mm3 (1.96-9.15); NEUTROPHILS PERCENT AUTO 50 % (41-73); Platelet Count 215 K/mm3 (150-400); RDW Coefficient Variation 12.7 % (11.7-14.2); RDW Standard Deviation 42.7 fL (35.1-46.3); White Blood Cell Count 8.57 K/mm3 (4.00-11.30)
[2022-12-21 06:28] LABS: Albumin, Blood 4.1 g/dL (3.4-5.0); Albumin/Globulin Ratio 1.3 (0.8-1.8); Bilirubin, Total 0.6 mg/dL (0.1-1.0); Bun/Creatinine Ratio 26.7 (12.0-20.0); Calcium, Blood 10.1 mg/dL (8.5-10.1); Creatinine, Blood 0.75 mg/dL (0.40-1.00); Globulin, Blood 3.1 g/dL (2.2-4.0); Potassium, Blood 3.8 mmol/L (3.5-5.5); Total Protein, Blood 7.2 g/dL (6.4-8.2)
[2022-12-21 07:30] VITALS: BP 132/86
[2022-12-21] MEDS ORDERED: ONDA4ODT MM (07:31)
[2022-12-21] MEDS ORDERED: MECL25 PO (07:31)
== END 2022-12-21 07:58 | disposition home or self-care (01) ==
LOC: ER 05:45
PROVIDERS: Emergency Medicine
DX: H81.10 Benign paroxysmal vertigo, unspecified ear (principal); I10 Essential (primary) hypertension; E78.5 Hyperlipidemia, unspecified; Z88.2 Allergy status to sulfonamides; Z88.1 Allergy status to other antibiotic agents; Z79.899 Other long term (current) drug therapy; Z87.891 Personal history of nicotine dependence
CPT/HCPCS: 80053; 85025; 93005; 93010; 96374; 99284-25; A9270; J2765